=== PATIENT | female | born 1960 | race Caucasian/White ===

== ENCOUNTER 2018-02-13 00:05 | Emergency (ER) | payer OTHER ==
[~2018-02-13] VITALS: Ht 160 cm; Wt 58.6 kg
[~2018-02-13 00:05] MED LIST: AMOX875 PO; ANTISOL30 RIGHT EAR; PRAV10 PO
[2018-02-13 00:10] VITALS: BP 182/94; PULSE 105; RESP 16; TEMP 98; O2SAT 94
[2018-02-13] MEDS ORDERED: LORazepam 2 MG TAB PO ONE (01:30)
[2018-02-13 01:42] VITALS: BP 154/85; PULSE 95; RESP 16; O2SAT 100
[2018-02-13] MEDS ORDERED: BUPR150CR PO (02:10)
[2018-02-13] MEDS ORDERED: PROZ20CA11 PO (02:10)
[2018-02-13] MEDS ORDERED: NEUR300C PO (02:10)
[2018-02-13 02:37] LABS: AUTOMATED NEUTROPHIL # 5.6 TH/MM3 (1.8-7.7); BASOPHIL # 0.3 TH/MM3 (0-0.2); BASOPHIL % 3.5 % (0.0-2.0); EOSINOPHIL % 0.5 % (0.0-4.0); HEMATOCRIT 40.3 % (35.0-46.0); LYMPH % 17.2 % (9.0-44.0); LYMPHOCYTE # 1.3 TH/MM3 (1.0-4.8); MEAN CORPUSCULAR HEMOGLOBIN 33.4 PG (27.0-34.0); MEAN CORPUSCULAR HGB CONC 34.8 % (32.0-36.0); MEAN PLATELET VOLUME 7.8 FL (7.0-11.0); MONO % 6.8 % (0.0-8.0); MONOCYTE # 0.5 TH/MM3 (0-0.9); PLATELET COUNT 228 TH/MM3 (150-450); RED BLOOD COUNT 4.19 MIL/MM3 (4.00-5.30); RED CELL DISTRIBUTION WIDTH 11.4 % (11.6-17.2); WHITE BLOOD COUNT 7.7 TH/MM3 (4.0-11.0)
[2018-02-13 02:44] LABS: CHLORIDE 104 MEQ/L (98-107); SODIUM (NA) 137 MEQ/L (136-145)
--- NOTE | 2018-02-13 02:45 | PD ---
HPI . tics Chief Complaint: Anxiety Time Seen by Provider: 00:30 Travel History International Travel<30 days: No Contact w/Intl Traveler<30days: No Traveled to known affect area: No History of Present Illness HPI Patient presents with chief complaint of tics. Onset was 2 days ago. She is also complaining with insomnia and agitation. She is concerned that she has serotonin syndrome. She states that she went to see her primary care for about it today about it and that the primary care provider prescribed Seroquel. She states that she did not have that filled because she did not want to add to her psychiatric medications. She currently takes Wellbutrin, Prozac and gabapentin. She tells me that she has weaned off of buprenorphine. She states that her last dose of buprenorphine was about a week ago. Her symptoms of insomnia, anxiety and involuntary muscle contractions all started about 2 days ago. She is unaware of any modifying factors. Symptoms have been persistent. PFSH Past Medical History Arthritis: No Asthma: No Blood Disorders: No Anxiety: Yes Depression: No Heart Rhythm Problems: No Cancer: No High Cholesterol: Yes Chemotherapy: No Chest Pain: No Congestive Heart Failure: No COPD: No Cerebrovascular Accident: No Diabetes: No Diminished Hearing: No GERD: No Glaucoma: No Headaches: No Hepatitis: No Hiatal Hernia: No Hypertension: No Kidney Stones: No Immunizations Current: Yes Myocardial Infarction: No Radiation Therapy: No Renal Failure: No Seizures: No Sickle Cell Disease: No Sleep Apnea: No Thyroid Disease: No Ulcer: No Tetanus Vaccination: < 5 Years Influenza Vaccination: No ?: Not LMP: menopause Menopausal: Yes Ovarian Cysts: Yes Past Surgical History Abdominal Surgery: Yes (2- c-sections) AICD: No Cardiac Surgery: No Section: Yes Ear Surgery: No Endocrine Surgery: No Eye Surgery: No Genitourinary Surgery: No Gynecologic Surgery: No Neurologic Surgery: No Oral Surgery: No Pacemaker: No Thoracic Surgery: No Other Surgery: Yes (BREAST AUGMENTATION, UPPER AND LOWER EYE LIFT) Social History Alcohol Use: Yes (OCCAS. BEER OR WINE) Tobacco Use: Yes (pack a day) Substance Use: No Allergies-Medications (Allergen,Severity, Reaction): Coded Allergies: No Known Allergies (Verified , 01/12/14) Reported Meds & Prescriptions Reported Meds & Active Scripts Active Reported Prozac (Fluoxetine HCl) 20 Mg Cap 20 Mg PO DAILY Neurontin (Gabapentin) 300 Mg Cap 900 Mg PO HS Wellbutrin SR 12 HR (Bupropion HCl) 150 Mg Tab 150 Mg PO Q12HR Review of Systems Except as stated in HPI: all other systems reviewed are Neg Physical Exam Narrative Vital Signs Date Time Temp Pulse Resp B/P (MAP) Pulse Ox O2 Delivery O2 Flow Rate FiO2 02/13/18 01:42 95 16 154/85 (108) 100 Room Air 02/13/18 00:10 98.0 105 16 182/94 (123) 94 GENERAL: Awake and alert. SKIN: warm/dry. HEAD: Normocephalic. Atraumatic. EYES: Pupils equal and round. No scleral icterus. No injection or drainage. No nystagmus. ENT: No nasal bleeding or discharge. Mucous membranes pink and moist. NECK: Trachea midline. Full range of motion without pain.. CARDIOVASCULAR: Regular rate and rhythm. RESPIRATORY: No accessory muscle use. Clear to auscultation. Breath sounds equal bilaterally. MUSCULOSKELETAL: No obvious deformities. NEUROLOGICAL: Awake and alert. No obvious cranial nerve deficits. Motor grossly within normal limits. Normal speech. She has 2 beats of clonus. Toes are downgoing bilaterally. She does have some resting tremors and occasional apparently involuntary motor contractions. PSYCHIATRIC: Appropriate mood and affect; insight and judgment normal. Data Data Last Documented VS Vital Signs Date Time Temp Pulse Resp B/P (MAP) Pulse Ox O2 Delivery O2 Flow Rate FiO2 02/13/18 03:13 97.8 82 16 122/74 (90) 94 Room Air Orders Orders Drug Screen, Random Urine (02/13/18 00:30) Alcohol (Ethanol) (02/13/18 00:30) Lorazepam (Ativan) (02/13/18 01:30) Complete Blood Count With Diff (02/13/18 01:58) Comprehensive Metabolic Panel (02/13/18 01:58) Creatine Kinase (Cpk) (02/13/18 01:58) CKMB (02/13/18 02:24) CKMB% (02/13/18 02:24) Labs Laboratory Tests Test 02/13/18 00:45 02/13/18 02:24 Urine Opiates Screen NEG Urine Barbiturates Screen NEG Urine Amphetamines Screen NEG Urine Benzodiazepines Screen NEG Urine Cocaine Screen NEG Urine Cannabinoids Screen NEG Ethyl Alcohol Level LESS THAN 3 MG/DL White Blood Count 7.7 TH/MM3 Red Blood Count 4.19 MIL/MM3 Hemoglobin 14.0 GM/DL Hematocrit 40.3 % Mean Corpuscular Volume 96.0 FL Mean Corpuscular Hemoglobin 33.4 PG Mean Corpuscular Hemoglobin Concent 34.8 % Red Cell Distribution Width 11.4 % Platelet Count 228 TH/MM3 Mean Platelet Volume 7.8 FL Neutrophils (%) (Auto) 72.0 % Lymphocytes (%) (Auto) 17.2 % Monocytes (%) (Auto) 6.8 % Eosinophils (%) (Auto) 0.5 % Basophils (%) (Auto) 3.5 % Neutrophils # (Auto) 5.6 TH/MM3 Lymphocytes # (Auto) 1.3 TH/MM3 Monocytes # (Auto) 0.5 TH/MM3 Eosinophils # (Auto) 0.0 TH/MM3 Basophils # (Auto) 0.3 TH/MM3 CBC Comment DIFF FINAL Differential Comment Blood Urea Nitrogen 11 MG/DL Creatinine 0.71 MG/DL Random Glucose 118 MG/DL Total Protein 7.5 GM/DL Albumin 4.0 GM/DL Calcium Level 8.7 MG/DL Alkaline Phosphatase 94 U/L Aspartate Amino Transf (AST/SGOT) 20 U/L Alanine Aminotransferase (ALT/SGPT) 27 U/L Total Bilirubin 0.3 MG/DL Sodium Level 137 MEQ/L Potassium Level 4.2 MEQ/L Chloride Level 104 MEQ/L Carbon Dioxide Level 28.2 MEQ/L Anion Gap 5 MEQ/L Estimat Glomerular Filtration Rate 84 ML/MIN Total Creatine Kinase 207 U/L MDM Medical Decision Making Medical Screen Exam Complete: Yes Emergency Medical Condition: Yes Differential Diagnosis Differential diagnosis includes but is not limited to anxiety, drug ingestion, alcohol intoxication, electrolyte abnormality, rhabdomyolysis, serotonin syndrome, opiate withdrawal Narrative Course This patient presents complaining with a 2 day history of insomnia, anxiety and involuntary muscle movement. I have pulled her up in [facility] She has also been prescribed Adderall, Ativan and temazepam in the recent past. Her last prescription for Adderall was filled on December 07 for a 30 day supply. Drug screen and alcohol level here were negative. I have given her a dose of Ativan. I have queried up-to-date regarding serotonin syndrome. She does have a few of the criteria for serotonin syndrome. CBC & BMP Diagram 02/13/18 02:24 Total Protein 7.5, Albumin 4.0, Calcium Level 8.7, Alkaline Phosphatase 94, Aspartate Amino Transf (AST/SGOT) 20, Alanine Aminotransferase (ALT/SGPT) 27, Total Bilirubin 0.3 CK 207 Repeat vital signs are normal. I feel that this patient is now safe to go home. Diagnosis Primary Impression: Acute tic disorder Additional Instructions: Follow-up with your psychiatrist for medication adjustment Disposition: 01 DISCHARGE HOME Condition: Stable Jenn Gilbert MD February 13, 2018 02:45
[2018-02-13 02:47] LABS: CALCIUM 8.7 MG/DL (8.5-10.1); GLUCOSE,RANDOM 118 MG/DL (74-106)
[2018-02-13 02:48] LABS: BICARBONATE 28.2 MEQ/L (21.0-32.0); BLOOD UREA NITROGEN 11 MG/DL (7-18)
[2018-02-13 02:51] LABS: ALT (GPT) 27 U/L (10-53); AST (GOT) 20 U/L (15-37); CREATININE 0.71 MG/DL (0.50-1.00); GLOMERULAR FILTRATION RATE 84 ML/MIN (>89)
[2018-02-13 02:53] LABS: TOTAL BILIRUBIN ADULT 0.3 MG/DL (0.2-1.0); TOTAL PROTEIN 7.5 GM/DL (6.4-8.2)
[2018-02-13 02:54] LABS: ALKALINE PHOSPHATASE 94 U/L (45-117)
[2018-02-13 03:13] VITALS: BP 122/74; PULSE 82; RESP 16; TEMP 97.8; O2SAT 94
== END 2018-02-13 03:30 | disposition home or self-care (01) ==
LOC: PHED 00:05
DX: F95.9 Tic disorder, unspecified (principal); G47.00 Insomnia, unspecified; F41.9 Anxiety disorder, unspecified; E78.00 Pure hypercholesterolemia, unspecified; F17.200 Nicotine dependence, unspecified, uncomplicated; Z79.899 Other long term (current) drug therapy
CPT/HCPCS: 80053; 80307; 82550; 82552; 85025; 99283